=== PATIENT | male | born 1955 | race Hispanic/Latino ===

== ENCOUNTER 2024-12-21 12:44 | Emergency (ER) | payer BC ==
[~2024-12-21] VITALS: Ht 162.6 cm; Wt 79.0 kg
[2024-12-21 12:50] VITALS: PULSE 94; RESP 18; TEMP 97.7
[2024-12-21 14:43] VITALS: BP 123/89; PULSE 80; RESP 18; TEMP 98; O2SAT 97
== END 2024-12-21 14:42 | disposition home or self-care (01) ==
LOC: FSED 13:17
DX: R51.9 Headache, unspecified (principal); I60.9 Nontraumatic subarachnoid hemorrhage, unspecified; I10 Essential (primary) hypertension; E11.9 Type 2 diabetes mellitus without complications
CPT/HCPCS: 70450; 99284